=== PATIENT | male | born 2000 | race Caucasian/White ===

== ENCOUNTER 2020-09-28 20:58 | Emergency (ER) | payer MEDICAID ==
[~2020-09-28] VITALS: Ht 180.3 cm; Wt 59.0 kg
[2020-09-28 21:09] VITALS: BP 132/92
--- NOTE | 2020-09-28 21:19 | NUR ---
20 MALE BIBA C/O HIGH BLOOD SUGAR; PT STATES BILAT FEET 10/10 PAIN. PT STATING FEET IS "INFLAMED" AND GETTING "HARDER TO WALK" X4 MONTHS. MEDHX: DM NKA
[2020-09-28] MEDS ORDERED: NACL 0.9% 2,000 ML IV ONE (21:40)
--- NOTE | 2020-09-28 22:50 | NUR ---
LABS DRAWN AND HANDED TO INSPECTOR SHELLS
[2020-09-28 23:05] LABS: BASOPHILS % (AUTO) 0.7 % (0.0-2.0); EOSINOPHILS # (AUTO) 0.1 K/uL (0-0.4); EOSINOPHILS % (AUTO) 1.9 % (0.0-4.0); HEMATOCRIT 40.3 % (36-52); HEMOGLOBIN 13.7 g/dL (12.0-18.0); LYMPHOCYTES # (AUTO) 1.8 K/uL (2.0-11.5); LYMPHOCYTES % (AUTO) 32.2 % (20.5-51.1); MEAN CORPUSCULAR HEMOGLOBIN 33 pg (27-31); MEAN CORPUSCULAR HGB CONC 34 g/dL (33-37); MEAN CORPUSCULAR VOLUME 96.9 fL (80-94); MONOCYTES # (AUTO) 0.4 K/uL (0.8-1.0); MONOCYTES % (AUTO) 6.5 % (1.7-9.3); NEUTROPHILS # (AUTO) 3.3 K/uL (1.8-7.7); NEUTROPHILS % (AUTO) 58.7 % (42.2-75.2); PLATELET COUNT (AUTO) 233 K/uL (140-450); RED BLOOD CELL COUNT(AUTO) 4.16 MIL/uL (4.20-6.10); RED CELL DISTRIBUTION WIDTH 12.2 % (11.6-13.7); WHITE BLOOD COUNT (AUTO) 5.7 K/uL (4.5-11.0)
[2020-09-28 23:27] LABS: ALBUMIN 3.4 g/dL (3.4-5.0); ANION GAP 9.2 (8-16); CARBON DIOXIDE 28.4 mmol/L (21-32); CREATININE 0.8 mg/dL (0.6-1.3); POTASSIUM 4.6 mmol/L (3.5-5.1); TOTAL BILIRUBIN 0.5 mg/dL (0.0-1.0)
[2020-09-28] MEDS ORDERED: INSULIN REGULAR, HUMAN 100 UNIT/ML VIAL IVP ONE (23:35)
[2020-09-28] MEDS ORDERED: LANTUS SC (23:41)
[2020-09-28] MEDS ORDERED: INSU-1165 SQ (23:41)
[2020-09-29 01:28] VITALS: BP 130/90
--- NOTE | 2020-09-29 01:28 | NUR ---
Patient discharged with v/s stable. Written and verbal after care instructions given and explained. Patient alert, oriented and verbalized understanding of instructions. Ambulatory with steady gait. All questions addressed prior to discharge. ID band removed. Patient advised to follow up with PMD. Rx of INSULIN LISPRO AND INSULIN GLARGINE given. Patient educated on indication of medication including possible reaction and side effects. Opportunity to ask questions provided and answered.
--- NOTE | 2020-09-29 01:30 | NUR ---
PT REFUSING TO LEAVE FACILITY, CALLED SECURITY
--- NOTE | 2020-09-29 01:58 | NUR ---
PT ESCORTED OUT BY SECURITY
== END 2020-09-29 01:28 | disposition home or self-care (01) ==
LOC: MED 20:58
DX: E11.65 Type 2 diabetes mellitus with hyperglycemia (principal); S90.821A Blister (nonthermal), right foot, initial encounter; S90.822A Blister (nonthermal), left foot, initial encounter; Z91.14 Patient's other noncompliance with medication regimen; Z79.899 Other long term (current) drug therapy; X58.XXXA Exposure to other specified factors, initial encounter; Y93.89 Activity, other specified; Y92.89 Other specified places as the place of occurrence of the external cause; Y99.8 Other external cause status
CPT/HCPCS: 36415; 80053; 85025; 96361; 96374; 99283; J1815; J7030

== ENCOUNTER 2021-02-02 20:00 | Inpatient (IN) | payer MEDICAID ==
[~2021-02-02] VITALS: Ht 180.3 cm; Wt 69.9 kg
[~2021-02-02 20:00] MED LIST: INSU-1165 SQ; LANTUS SC
--- NOTE | 2021-02-02 20:00 | NUR ---
ARNOL OSITO MUÑOZ FROM [facility], PT. IS A 20 Y/O MALE THAT CAME INTO ED WITH C/O OF N/V FOR 3-4 DAYS. PT. STATES HE HAS LOWER AND UPPER ABDOMINAL PAIN THAT HE RATES AT 4/10 AT THIS TIME. PT. ADMITTED TO USING "DRUGS, EVERYTHING BUT FENTANYL" AND HAS NOT BEEN TAKING INSULIN. SKIN IS PINK/WARM/DRY; AAOX4 WITH EVEN AND STEADY GAIT; HR EVEN AND REGULAR; PT DENIES ANY FEVER, CP, SOB, OR COUGH AT THIS TIME; VSS; PATIENT POSITIONED FOR COMFORT; HOB ELEVATED; BEDRAILS UP X2; BED DOWN. ER MD MADE AWARE OF PT STATUS. PMH: DM 1 ALLERGIES: HALOPERIDOL
--- NOTE | 2021-02-02 20:03 | NUR ---
PATIENT TAKEN TO BED 7 VIA GURNEY.
--- NOTE | 2021-02-02 20:05 | NUR ---
ERMD AT BEDSIDE FOR MEDICAL EVALUATION.
[2021-02-02 20:07] VITALS: BP 141/96
--- NOTE | 2021-02-02 20:07 | NUR ---
PT. AMBULATED WITH STEADY GAIT TO BATHROOM
[2021-02-02] MEDS ORDERED: INSULIN REGULAR, HUMAN 100 UNIT/ML VIAL IV ONE (20:15)
[2021-02-02] MEDS ORDERED: NACL 0.9% 2,000 ML IV ONE (20:15)
[2021-02-02 20:33] LABS: BASOPHILS % (AUTO) 0.3 % (0.0-2.0); EOSINOPHILS % (AUTO) 0.1 % (0.0-4.0); HEMATOCRIT 50.5 % (36-52); HEMOGLOBIN 16.9 g/dL (12.0-18.0); LYMPHOCYTES # (AUTO) 1.5 K/uL (2.0-11.5); LYMPHOCYTES % (AUTO) 10.9 % (20.5-51.1); MEAN CORPUSCULAR HEMOGLOBIN 32 pg (27-31); MEAN CORPUSCULAR HGB CONC 34 g/dL (33-37); MEAN CORPUSCULAR VOLUME 94.6 fL (80-94); MONOCYTES # (AUTO) 0.6 K/uL (0.8-1.0); MONOCYTES % (AUTO) 4.4 % (1.7-9.3); NEUTROPHILS # (AUTO) 11.7 K/uL (1.8-7.7); NEUTROPHILS % (AUTO) 84.3 % (42.2-75.2); PLATELET COUNT (AUTO) 311 K/uL (140-450); RED BLOOD CELL COUNT(AUTO) 5.34 MIL/uL (4.20-6.10); RED CELL DISTRIBUTION WIDTH 12.4 % (11.6-13.7); WHITE BLOOD COUNT (AUTO) 13.9 K/uL (4.5-11.0)
[2021-02-02 20:45] LABS: ALBUMIN 4.7 g/dL (3.4-5.0); ASPARTATE AMINOTRANSFERASE 15 U/L (15-37); CHLORIDE 96 mmol/L (98-107); CREATININE 1.3 mg/dL (0.6-1.3); GFR ARICAN-AMERICAN 91 mL/min (>90); GLUCOSE 326 mg/dL (74-106); LIPASE 47 U/L (73-393); POTASSIUM 4.7 mmol/L (3.5-5.1); SODIUM SERUM 131 mmol/L (136-145); TOTAL BILIRUBIN 1.2 mg/dL (0.0-1.0); UREA NITROGEN, BLOOD 13 mg/dL (7-18)
[2021-02-02 20:48] LABS: ACETONE, SERUM SMALL (NEGATIVE); CARBON DIOXIDE 9.7 mmol/L (21-32)
[2021-02-02] MEDS ORDERED: INSULIN REGULAR, HUMAN 100 UNIT in NACL 0.9% 100 ML IV ONE ×2 (20:55)
--- NOTE | 2021-02-02 21:15 | NUR ---
INSULIN DRIP INIATED PER PROTOCOL. PT IN BED. NO NEW CONCERNS OR COMPLAINTS. ADVISED OF PENDING ADMISSION. ALL QUESTIONS ANSWERED.
--- NOTE | 2021-02-02 21:22 | NUR ---
Laquita gomez in [facility] - 02/02/21 at 2129 by MERLYN RECEIVED REPORT FROM REKHA BARKER. TRANSFER OF CARE AT THIS TIME.
[2021-02-02] MEDS ORDERED: DEXT 5% / NACL 0.45% 1,000 ML IV ONE (21:35)
[2021-02-02] MEDS ORDERED: cefTRIAXone 1,000 MG VIAL ONE (22:09)
--- NOTE | 2021-02-02 22:19 | NUR ---
PT SLEEPING - NO COMPLAINTS. NO NEW QUESTIONS OR CONCERNS.
[2021-02-02 22:20] LABS: APPEARANCE,URINE CLEAR (CLEAR); BILIRUBIN,URINE 1+ (NEGATIVE); BLOOD, URINE TRACE-I (NEGATIVE); COLOR,URINE YELLOW (YELLOW); LEUKOCYTE ESTERASE ,URINE NEGATIVE (NEGATIVE); NITRITE, URINE NEGATIVE (NEGATIVE); UGLUCOSE 2+ (NEGATIVE)
[2021-02-02 22:35] LABS: BARBITURATE, URINE NEGATIVE ng/ml (NEG <=200); BENZODIAZEPINE, URINE NEGATIVE ng/mL (NEG <=200); CANNABINOID, URINE POSITIVE ng/mL (NEG <=50); COCAINE, URINE NEGATIVE ng/mL (NEG <=300); OPIATE, URINE NEGATIVE ng/mL (NEG <=2000); PHENCYCLIDINE SCREEN,URINE NEGATIVE ng/mL (NEG <=25)
[2021-02-02 22:40] LABS: RBC,URINE 0-5 /HPF (0-5); WBC,URINE 0-5 /HPF (0-5)
--- NOTE | 2021-02-02 23:11 | NUR ---
Patient will be admitted to care of DR. BENDER. Admited to ICU. Will go to room ICU - 03. Belongings list completed. Report to LUCERO TUCKER.
[2021-02-02 23:15] VITALS: BP 136/78
[2021-02-02] MEDS: INSULIN REGULAR, HUMAN 100 UNIT in NACL 0.9% 100 ML IV SCH ×2 (23:15)
--- NOTE | 2021-02-02 23:15 | NUR ---
RECEIVED CARE AND REPORT FROM AUTO CLAIM REPRESENTATIVE. PATIENT ALERT AND ORIENTED X4 TO PERSON, PLACE, TIME AND EVENT. PATIENT ON ROOM AIR, OXYGEN SATURATION 99%, NO SIGNS OF RESPIRATORY DISTRESS OR DIFFICULTY BREATHING. HOB 30 DEGREES, AIRWAY OPEN, CLEAR AND MAINTAINABLE. PATIENT CONNECTED TO CONTINUOUS TELE MONITORING, HEART AND LUNG SOUNDS AUSCULTATED, S1, S2 HEARD AND LUNGS CLEAR, EQUAL BILATERAL. ABDOMINAL SOUNDS AUSCULTATED, NORMOACTIVE BOWEL SOUNDS IN ALL 4 QUADRANTS. PATIENT DENIES ANY COMPLAINTS OF PAIN OR DISCOMFORT WHEN ASKED. PATIENT HAS IV SITE OF LEFT AC 18G AND RIGHT AC 20G. SITES FLUSHING WELL AND DRESSINGS DRY. IV DRIPS CURRENTLY RUNNING INCLUDE INSULIN AT 0.05 UNITS/KG/HR AND D5-1/2 NS RUNNING AT 150 ML/HR PER MD ORDER, Q1 GLUCOSE CHECKS IN PLACE. SKINS INTACT WITH PREVIOUS CIGARETTE PLEITEZ ON LEFT HAND, LEFT THIGH, LEFT KNEE HEALING WOUND/SCAB FROM PATIENT STATED SKATEBOARD INJURY. PATIENT BED LOCKED AND LOWERED INTO A POSITION OF SAFETY AND COMFORT. PATIENT BEING OFFLOADED WITH USE OF PILLOWS AND ASSISTED WITH REPOSITIONING Q2. CALL LIGHT PLACED WITH PATIENT AND EDUCATED/FAMILIARIZED WITH THE ROOM ENVIRONMENT. PROMOTING RESTFUL AND HEALING ENVIRONMENT FOR THE PATIENT WITH DECREASED STIMULI. WILL CONTINUE TO CLOSELY MONITOR AND FREQUENTLY ROUND THROUGHOUT THE SHIFT.
[2021-02-02] MEDS ORDERED: DEXTROSE 50% 50 ML SYR IVP PRN (23:55)
[2021-02-02] MEDS ORDERED: INSULIN REGULAR, HUMAN 100 UNIT in NACL 0.9% 100 ML IV SCH ×2 (23:55)
[2021-02-02] MEDS: BLOOD GLUCOSE MONITORING 1 DEV DEV FS SCH (23:55)
[2021-02-03] VITALS (24 sets, daily range): BP systolic 95–138; BP diastolic 50–91
--- NOTE | 2021-02-03 00:10 | NUR ---
CONTACTED DR. BENDER REGARDING PATIENT STATUS AND FOR ANY FURTHER UPDATES IN ADDITIONAL ORDERS FOR PATIENT. DR. BENDER GIVEN FULL REPORT OF PATIENT. MD GAVE TELEPHONE VERBAL ORDERS OF [facility] BLOOD LABS Q4, CCHO DIET, Q1 ACCUCHECKS, PRN POTASSIUM 40 MEQ PO FOR POTASSIUM LESS THAN 3.5, PRN 2 GM MAG RIDER IV FOR MAGNESIUM LESS THAN 1.8. WILL CARRY OUT ORDERS.
[2021-02-03 00:29] LABS: ANION GAP 21.1 (8-16); CARBON DIOXIDE 15.7 mmol/L (21-32); CREATININE 1.1 mg/dL (0.6-1.3); POTASSIUM 3.8 mmol/L (3.5-5.1)
[2021-02-03] MEDS ORDERED: MAG SULF 2000 MG/WATER PREMIX 50 ML IV PRN (00:30)
[2021-02-03] MEDS: NACL 0.9% 1,000 ML IV SCH ×4 (00:50→20:50)
[2021-02-03] MEDS: BLOOD GLUCOSE MONITORING 1 DEV DEV FS SCH ×24 (00:55→23:55)
--- NOTE | 2021-02-03 01:25 | NUR ---
PATIENT RESTING IN A POSITION OF COMFORT, SLEEPING. NO SIGNS OF DISTRESS OBSERVED WHILE AT BEDSIDE. PATIENT CONTINUES TO TOLERATE CURRENT THERAPIES WELL. WILL CONTINUE TO CLOSELY MONITOR, REASSESS OFTEN AND FREQUENTLY ROUND.
--- NOTE | 2021-02-03 03:16 | NUR ---
PATIENT ASLEEP, HOB 30 DEGREES. NO SIGNS OF DISTRESS OBSERVED WHILE AT BEDSIDE. PATIENT CONTINUES TO TOLERATE CURRENT THERAPIES WELL. PATIENT OXYGEN SATURATION 98%, NSR ON THE MONITOR HR 76, RR 12. WILL CONTINUE TO CLOSELY MONITOR, REASSESS OFTEN AND FREQUENTLY ROUND.
[2021-02-03] MEDS ORDERED: BLOOD GLUCOSE MONITORING 1 DEV DEV FS SCH (04:05)
[2021-02-03] MEDS ORDERED: DEXTROSE 50% 50 ML SYR IVP PRN (04:05)
[2021-02-03 04:21] LABS: ANION GAP 23.4 (8-16); CARBON DIOXIDE 17.1 mmol/L (21-32); POTASSIUM 3.5 mmol/L (3.5-5.1)
[2021-02-03 04:39] LABS: MAGNESIUM 1.6 mg/dL (1.8-2.4); PHOSPHORUS 3.4 mg/dL (2.5-4.9)
--- NOTE | 2021-02-03 05:22 | NUR ---
LOW BLOOD SUGAR OF 62 PER INSULIN DRIP PROTOCOL, INSULIN DRIP HELD, D50 GIVEN ORDERED BY MD/PER PROTOCOL.
--- NOTE | 2021-02-03 05:23 | NUR ---
PATIENT IN NO OBVIOUS SIGNS OF DISTRESS OR DISCOMFORT. STATED FEELING FINE WHEN ASKED AND CURRENTLY ASYMPTOMATIC. WILL CONTINUE TO CLOSELY MONITOR AND FREQUENTLY ROUND.
[2021-02-03] MEDS: DEXT 5% / NACL 0.45% 1,000 ML IV SCH ×3 (05:38→18:42)
--- NOTE | 2021-02-03 05:45 | NUR ---
BLOOD SUGAR RECHECKED, GLUCOSE 184. DR. BENDER CONTACTED DUE TO CRITICAL GLUCOSE, AWAITING FURTHER ORDERS FROM .
--- NOTE | 2021-02-03 05:48 | NUR ---
PRN MAG RIDER IV GIVEN ORDERED BY MD FOR LOW MAG LAB LEVEL OF 1.6. WILL CONTINUE TO CLOSELY MONITOR AND FREQUENTLY ROUND.
--- NOTE | 2021-02-03 05:55 | NUR ---
CALLED/PAGED FOR DR. BENDER, AWAITING FOR A CALLBACK FROM
--- NOTE | 2021-02-03 06:02 | NUR ---
PATIENT CONTINUES TO REST, NO OBVIOUS SIGNS OF DISTRESS OBSERVED WHILE AT BEDSIDE. PATIENT STATES THAT HE CONTINUES TO FEEL OK AND DENIES PAIN, DENIES DISCOMFORT. WILL CONTINUE TO CLOSELY MONITOR, REASSESS OFTEN AND FREQUENTLY ROUND.
--- NOTE | 2021-02-03 06:25 | NUR ---
CALLED/PAGED FOR DR. BENDER AGAIN, AWAITING FOR A CALLBACK FROM MD TO NOTIFY OF PATIENT STATUS.
--- NOTE | 2021-02-03 07:19 | NUR ---
REPORT AND CONTINUITY OF CARE ENDORSED TO DAYSHIFT RN
--- NOTE | 2021-02-03 07:24 | NUR ---
RECEIVED BEDSIDE REPORT FROM NIGHTSHIFT NURSE. PATIENT ABLE TO MAKE NEEDS KNOWN. PATIENT ON ROOM AIR, OXYGEN SATURATION 99%, NO SIGNS OF RESPIRATORY DISTRESS OR SOB. PATIENT CONNECTED TO CONTINUOUS TELE MONITORING, PATIENT DENIES PAIN. PATIENT HAS IV SITE OF LEFT AC 18G AND RIGHT AC 20G. SITES FLUSHING WELL AND DRESSINGS DRY. IV DRIPS CURRENTLY RUNNING INCLUDE MAG BAO WITH INSULIN AT 0.05 UNITS/KG/HR AND D5-1/2 NS RUNNING AT 150 ML/HR PER MD ORDER, Q1 GLUCOSE CHECKS IN PLACE. SKINS INTACT WITH PREVIOUS CIGARETTE PLEITEZ ON LEFT HAND, LEFT THIGH, LEFT KNEE HEALING WOUND/SCAB FROM PATIENT STATED SKATEBOARD INJURY. PATIENT BED LOCKED AND LOWERED INTO A POSITION OF SAFETY AND COMFORT. PATIENT BEING OFFLOADED WITH USE OF PILLOWS AND ASSISTED WITH REPOSITIONING Q2. SAFETY MEASURES IN PLACE. WILL CONTINUE TO MONITOR
--- NOTE | 2021-02-03 08:05 | NUR ---
PT BLOOD SUGAR IS 166. STARTED INSULIN DRIP PRESCRIBED PER MD ORDER. SAFETY MEASURES IN PLACE. WILL CONTINUE TO MONITOR
--- NOTE | 2021-02-03 08:21 | NUR ---
REPORTED VBG RESULTS TO DR BENDER, NO NEW ORDERS.
[2021-02-03 08:23] LABS: ANION GAP 19.7 (8-16); CARBON DIOXIDE 17.2 mmol/L (21-32); POTASSIUM 3.9 mmol/L (3.5-5.1)
[2021-02-03 08:26] LABS: MAGNESIUM 2.4 mg/dL (1.8-2.4); PHOSPHORUS 3.1 mg/dL (2.5-4.9)
--- NOTE | 2021-02-03 08:37 | NUR ---
PATIENT HAS BEEN SCREENED AND CATEGORIZED HIGH NUTRITION RISK. PATIENT WILL BE SEEN WITHIN 1-2 DAYS OF ADMISSION. 02/03/21-02/04/21 FNS REFERRAL FOR UNCONTROLLED DIABETES [address]
[2021-02-03] MEDS ORDERED: MORPHINE SULFATE 2 MG/ML SYR IVP PRN (09:00)
[2021-02-03] MEDS ORDERED: DOCUSATE SODIUM 100 MG GELCAP PO PRN (09:00)
[2021-02-03] MEDS ORDERED: LORazepam 2 MG/ML VIAL IM/IVP PRN (09:00)
[2021-02-03] MEDS ORDERED: HYDROcodone/APAP 5/325 MG 1 TAB TAB PO PRN (09:00)
[2021-02-03] MEDS ORDERED: ACETAMINOPHEN 325 MG TAB PO PRN (09:00)
[2021-02-03] MEDS ORDERED: ONDANSETRON 4 MG/2 ML VIAL IM/IVP PRN (09:00)
[2021-02-03] MEDS ORDERED: ZOLPIDEM 5 MG TAB PO PRN (09:00)
--- NOTE | 2021-02-03 09:55 | NUR ---
BLOOD SUGAR IS 222. ADJUSTMENTS MADE PER PROTOCOL. SAFETY MEASURES IN PLACE. WILL CONTINUE TO MONITOR
--- NOTE | 2021-02-03 10:41 | NUR ---
PATIENT ASLEEP IN BED. RESPONSIVE TO VERBAL AND TACTILE STIMULI. NO SIGNS OF DISTRESS. SAFETY MEASURES IN PLACE. WILL CONTINUE TO MONITOR
--- NOTE | 2021-02-03 12:00 | NUR ---
DR. BENDER AT BEDSIDE ASSESSING PATIENT. WILL CONTINUE TO MONITOR
[2021-02-03 12:46] LABS: BASOPHILS % (AUTO) 0.6 % (0.0-2.0); EOSINOPHILS % (AUTO) 0.7 % (0.0-4.0); HEMATOCRIT 46.7 % (36-52); HEMOGLOBIN 16.1 g/dL (12.0-18.0); LYMPHOCYTES # (AUTO) 1.7 K/uL (2.0-11.5); LYMPHOCYTES % (AUTO) 25.2 % (20.5-51.1); MEAN CORPUSCULAR HEMOGLOBIN 32 pg (27-31); MEAN CORPUSCULAR HGB CONC 35 g/dL (33-37); MEAN CORPUSCULAR VOLUME 93.7 fL (80-94); MONOCYTES # (AUTO) 0.6 K/uL (0.8-1.0); MONOCYTES % (AUTO) 9.2 % (1.7-9.3); NEUTROPHILS # (AUTO) 4.3 K/uL (1.8-7.7); NEUTROPHILS % (AUTO) 64.3 % (42.2-75.2); PLATELET COUNT (AUTO) 254 K/uL (140-450); RED BLOOD CELL COUNT(AUTO) 4.99 MIL/uL (4.20-6.10); RED CELL DISTRIBUTION WIDTH 12.2 % (11.6-13.7); WHITE BLOOD COUNT (AUTO) 6.7 K/uL (4.5-11.0)
[2021-02-03 13:00] LABS: ANION GAP 21.4 (8-16); CARBON DIOXIDE 17.2 mmol/L (21-32); CREATININE 1.1 mg/dL (0.6-1.3); POTASSIUM 3.6 mmol/L (3.5-5.1)
--- NOTE | 2021-02-03 13:15 | NUR ---
PT RESTING IN BED. ABLE TO MAKE NEEDS KNOWN. RESPIRATIONS EVEN AND UNLABORED WITH NO SOB OR RESPIRATORY DISTRESS. SAFETY MEASURES IN PLACE. WILL CONTINUE TO MONITOR
[2021-02-03 13:22] LABS: PROTHROMBIN TIME 10.4 secs (10.8-13.4)
[2021-02-03 13:39] LABS: THYROID STIMULATING HORMONE 0.55 uIU/mL (0.34-3.74)
--- NOTE | 2021-02-03 14:03 | NUR ---
DC PLANNIN YRS OLD HOMELESS MALE PATIENT WAS ADMITTED FROM ER WITH A DX OF DKA BLOOD GLUCOSE 326 ANION GAP WAS 30 ON ADMISSION. PATIENT HAS A HX OF DM ,NON COMPLIANT. URINE AND BLOOD CULTURE PENDING. ON INSULIN DRIP, IV ABX ROCEPHIN AND IVF. CONSULTED WITH CRITICAL PULMO DR SPENCE. CLERK TO EVALUATE FOR HOMELESSNESS. DC PLAN TO GO HOME WHEN STABLE. CM TO FOLLOW.
[2021-02-03 14:05] LABS: PHOSPHORUS 1.8 mg/dL (2.5-4.9)
--- NOTE | 2021-02-03 14:55 | NUR ---
PT BLOOD SUGAR IS 171. PT ON INSULIN DRIP. ADJUSTED PER PROTOCOL. SAFETY MEASURES IN PLACE. WILL CONTINUE TO MONITOR
--- NOTE | 2021-02-03 15:09 | NUR ---
DC PLANNING: SPOKE WITH PATIENT AT BEDSIDE REGARDING DC PLANNING. PATIENT WITH FLAT AFFECT AND VOICE, RELUCTANT TO ANSWER QUESTIONS. INITIALLY STATED HE LIVES IN A MOTOR HOME, LATER ADMITTED HE'S HOMELESS AND SLEEPING ON THE STREETS, HAS NO PARTICULAR PLACE, PER HIS STATEMENT HE SLEEPS WHEREVER HE IS WHEN HE "CAN'T GO ANYMORE". 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 STATES HE HAS A CELL PHONE THAT HAS NO SERVICE. HAS A GLUCOMETER BUT STATES HE NEVER CHECKS HIS BLOOD SUGAR. 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 STATES HE KEEPS HIS INSULIN AT HIS MOTHER AND GRANDFATHERS HOUSE(S), BUT RAN OUT. NO LONGER HAS A PCP, STATES HE HAS NO MONEY TO SEE A DOCTOR AND CAN'T RETURN TO HIS FORMER PCP. DECLINED OFFER FOR PLACEMENT AT [facility] OR OTHER LODGING, STATED THAT "SOME PROBLEMS JUST CAN'T BE FIXED." H/O OF DIABETES SINCE AGE 12. CM WILL CONTINUE TO FOLLOW FOR NEEDS.
--- NOTE | 2021-02-03 15:35 | NUR ---
02/03/21 RD INITIAL ASSESSMENT COMPLETED PLEASE REFER TO NUTRITION ASSESSMENT UNDER CARE ACTIVITY FOR ESTIMATED NUTRITIONAL NEEDS. 1. CONTINUE [facility] DIET TOLERATED 2. RD OFFERED NUTRITION EDUCATION ON CARBOHYDRATE COUNTING. PT DECLINED. 3. RD TO FOLLOW-UP 3-5 DAYS, MODERATE RISK [address]
[2021-02-03 16:14] LABS: ANION GAP 12.9 (8-16); CARBON DIOXIDE 22.3 mmol/L (21-32); CREATININE 0.9 mg/dL (0.6-1.3); POTASSIUM 3.2 mmol/L (3.5-5.1)
[2021-02-03 16:19] LABS: PHOSPHORUS 2.1 mg/dL (2.5-4.9)
--- NOTE | 2021-02-03 16:55 | NUR ---
PT BLOOD SUGAR IS 131. FOLLOWING INSULIN PROTOCOL PER MD ORDER. SAFETY MEASURES IN PLACE. WILL CONTINUE TO MONITOR
[2021-02-03] MEDS: POTASSIUM CHLORIDE 10 MEQ TABER PO PRN (17:03)
--- NOTE | 2021-02-03 18:20 | NUR ---
PT EATING IN BED. ABLE TO MAKE NEEDS KNOWN. NO SIGNS OF DISTRESS AT THIS TIME. WILL CONTINUE TO MONITOR
--- NOTE | 2021-02-03 19:18 | NUR ---
ENDORSED AT BEDSIDE TO NIGHTSHIFT NURSE FOR CONTINUITY OF CARE
--- NOTE | 2021-02-03 19:20 | NUR ---
RECEIVED CARE AND REPORT FROM DAYSHIFT RN. PATIENT ALERT AND ORIENTED X4 TO PERSON, PLACE, TIME AND EVENT. PATIENT ON ROOM AIR, OXYGEN SATURATION 100%, NO SIGNS OF RESPIRATORY DISTRESS OR DIFFICULTY BREATHING, RESTING COMFORTABLY. HOB 25 DEGREES, AIRWAY OPEN, CLEAR AND MAINTAINABLE. PATIENT CONNECTED TO CONTINUOUS TELE MONITORING AT BEDSIDE HR 72 NSR, HEART AND LUNG SOUNDS AUSCULTATED, S1, S2 HEARD AND LUNGS CLEAR, EQUAL BILATERAL IN ALL LUNG YEPEZ, RR 14. ABDOMINAL SOUNDS AUSCULTATED, NORMOACTIVE BOWEL SOUNDS IN ALL 4 QUADRANTS. PATIENT DENIES ANY COMPLAINTS OF PAIN OR DISCOMFORT WHEN ASKED. PATIENT HAS IV SITE OF LEFT AC 18G AND RIGHT AC 20G. IV SITES FLUSHING WELL AND DRESSINGS DRY, INTACT. IV DRIPS CURRENTLY RUNNING INCLUDE INSULIN AT 0.05 UNITS/KG/HR AND D5-1/2 NS RUNNING AT 150 ML/HR PER MD ORDER, Q1 GLUCOSE CHECKS REMAIN IN PLACE. SKINS INTACT WITH PREVIOUS CIGARETTE PLEITEZ ON RIGHT HAND, LEFT THIGH, AND LEFT KNEE HEALING WOUND/SCAB FROM PATIENT STATED OLD SKATEBOARD INJURY. PATIENT BED LOCKED AND LOWERED INTO A POSITION OF SAFETY AND COMFORT. PATIENT BEING OFFLOADED WITH USE OF PILLOWS AND ASSISTED WITH REPOSITIONING Q2. CALL LIGHT PLACED WITH PATIENT AND EDUCATED/FAMILIARIZED WITH THE ROOM ENVIRONMENT. PROMOTING RESTFUL AND HEALING ENVIRONMENT FOR THE PATIENT WITH DECREASED STIMULI. WILL CONTINUE TO CLOSELY MONITOR AND FREQUENTLY ROUND THROUGHOUT THE SHIFT.
[2021-02-03 20:49] LABS: CARBON DIOXIDE 19.1 mmol/L (21-32); POTASSIUM 4.1 mmol/L (3.5-5.1)
[2021-02-03 20:56] LABS: MAGNESIUM 1.8 mg/dL (1.8-2.4); PHOSPHORUS 2.3 mg/dL (2.5-4.9)
--- NOTE | 2021-02-03 21:06 | NUR ---
SCHEDULED MEDICATIONS GIVEN ORDERED BY MD. PATIENT TOLERATING CURRENT THERAPIES IN PLACE, NO OBVIOUS SIGNS OF DISTRESS OR DISCOMFORT OBSERVED WHILE AT BEDSIDE. PATIENT RESTING IN A POSITION OF COMFORT. WILL CONTINUE TO CLOSELY MONITOR, REASSESS OFTEN AND FREQUENTLY ROUND.
--- NOTE | 2021-02-03 23:03 | NUR ---
PATIENT CONTINUES TO REST IN A POSITION OF COMFORT, DENIES ANY PAIN OR DISCOMFORT WHEN ASKED. PATIENT STATES FEELING FINE, TRYING TO REST/SLEEP. PATIENT CONTINUES TO TOLERATE CURRENT THERAPIES IN PLACE, NO OBVIOUS SIGNS OF DISTRESS OBSERVED WHILE AT BEDSIDE. WILL CONTINUE TO REASSESS OFTEN, CLOSELY MONITOR AND FREQUENTLY ROUND.
[2021-02-03] MEDS: INSULIN REGULAR, HUMAN 100 UNIT in NACL 0.9% 100 ML IV SCH ×2 (23:31)
[2021-02-04] VITALS (14 sets, daily range): BP systolic 92–123; BP diastolic 45–81
--- NOTE | 2021-02-04 00:25 | NUR ---
PATIENT BLOOD GLUCOSE TRENDING DOWN TO 77, STATES FEELING FINE AND IS HUNGRY, GIVEN SANDWICH TO EAT. TOLERATING FOOD WELL, DENIES ANY DISTRESS OR DISCOMFORT. ATE ALL OF THE PROVIDED FOOD. WILL CONTINUE TO REASSESS OFTEN, CLOSELY MONITOR AND FREQUENTLY ROUND.
[2021-02-04 00:32] LABS: ANION GAP 10.8 (8-16); CARBON DIOXIDE 24.7 mmol/L (21-32); CREATININE 0.9 mg/dL (0.6-1.3); POTASSIUM 3.5 mmol/L (3.5-5.1)
[2021-02-04] MEDS: BLOOD GLUCOSE MONITORING 1 DEV DEV FS SCH ×10 (00:55→17:27)
--- NOTE | 2021-02-04 01:10 | NUR ---
GLUCOSE RECHECKED PER PROTOCOL, GLUCOSE 137, PATIENT STATES THAT HES STILL FEELS FINE WHEN ASKED. PATIENT ATTEMPTING TO SLEEP/REST. ASSISTED INTO A POSITION OF COMFORT. NO SIGNS OF DISTRESS OBSERVED WHILE AT BEDSIDE. WILL CONTINUE TO REASSESS OFTEN, CLOSELY MONITOR AND FREQUENTLY ROUND.
[2021-02-04] MEDS: DEXT 5% / NACL 0.45% 1,000 ML IV SCH ×2 (01:39→08:00)
--- NOTE | 2021-02-04 02:07 | NUR ---
GLUCOSE 222, SWITCHED FLUIDS TO NS 0.9% PER PROTOCOL. PATIENT CONTINUES TO REST COMFORTABLY. WILL CONTINUE TO REASSESS OFTEN, CLOSELY MONITOR AND FREQUENTLY ROUND.
[2021-02-04] MEDS: NACL 0.9% 1,000 ML IV SCH ×2 (02:15→10:20)
--- NOTE | 2021-02-04 03:33 | NUR ---
PATIENT VOIDED 1 TIME, 1100 ML URINE OUTPUT.
--- NOTE | 2021-02-04 05:06 | NUR ---
BLOOD GLUCOSE 177, SWITCHED FLUIDS BACK TO D5-1/2 NS PER PROTOCOL, TOLERATING THERAPIES WELL. WILL CONTINUE TO REASSESS OFTEN, CLOSELY MONITOR AND FREQUENTLY ROUND.
[2021-02-04 05:59] LABS: BASOPHILS % (AUTO) 0.6 % (0.0-2.0); EOSINOPHILS # (AUTO) 0.1 K/uL (0-0.4); EOSINOPHILS % (AUTO) 1.5 % (0.0-4.0); HEMATOCRIT 42.1 % (36-52); HEMOGLOBIN 14.6 g/dL (12.0-18.0); MEAN CORPUSCULAR HEMOGLOBIN 32 pg (27-31); MEAN CORPUSCULAR HGB CONC 35 g/dL (33-37); MEAN CORPUSCULAR VOLUME 93.2 fL (80-94); MONOCYTES # (AUTO) 0.4 K/uL (0.8-1.0); MONOCYTES % (AUTO) 7.1 % (1.7-9.3); NEUTROPHILS # (AUTO) 2.8 K/uL (1.8-7.7); NEUTROPHILS % (AUTO) 52.8 % (42.2-75.2); PLATELET COUNT (AUTO) 213 K/uL (140-450); RED BLOOD CELL COUNT(AUTO) 4.52 MIL/uL (4.20-6.10); WHITE BLOOD COUNT (AUTO) 5.3 K/uL (4.5-11.0)
[2021-02-04 06:41] LABS: CHOL/HDL RATIO 4.7 (1-4.5)
[2021-02-04 06:43] LABS: MAGNESIUM 1.8 mg/dL (1.8-2.4); PHOSPHORUS 2.9 mg/dL (2.5-4.9)
[2021-02-04 06:44] LABS: ANION GAP 12.5 (8-16); CARBON DIOXIDE 20.7 mmol/L (21-32); CREATININE 0.9 mg/dL (0.6-1.3); POTASSIUM 3.2 mmol/L (3.5-5.1)
--- NOTE | 2021-02-04 07:21 | NUR ---
REPORT AND CARE ENDORSED TO DAYSHIFT RN FOR CONTINUITY OF CARE.
--- NOTE | 2021-02-04 07:25 | NUR ---
RECEIVED HANDOFF FROM HAND PRINTED CIRCUIT BOARD ASSEMBLER RN. PT IS ALERT AND ORIENTED X4. PT IS ON ROOM AIR AT THIS TIME. PT IS SATURATING WELL, RESPIRATIONS EVEN AND UNLABORED. PT'S IS CURRENTLY SINUS RHYTHM ON THE MONITOR. FOR ACCESS, PT HAS L AC 18 G AND R AC 20 G. INSULIN DRIP IS RUNNING AT 0.05 UN/KG/HR AND D5 1/2 NS AT 150 ML/HR. PT IS ON CCHO 60 G FOR DIET AND IS TOLERATING WELL WITHOUT NAUSEA OR VOMITING. HOB IS 30 DEG WITH BED IN LOW, LOCKED POSITION, SAFETY MEASURES IN PLACE.
--- NOTE | 2021-02-04 08:00 | NUR ---
VBG HELD FOR CORRELATION TIME WITH LAB DRAW
[2021-02-04 08:08] LABS: T4 (THYROXINE) 7.2 ug/dL (4.5-12.0)
[2021-02-04] MEDS ORDERED: BLOOD GLUCOSE MONITORING 1 DEV DEV FS SCH (09:00)
[2021-02-04] MEDS: POTASSIUM CHLORIDE 10 MEQ TABER PO PRN (09:06)
--- NOTE | 2021-02-04 09:13 | NUR ---
VBG DRAWN BY LAB PRIOR TO RECEIVING CANCELLATION NOTICES IN CARDIOPULMONARY DEPT
[2021-02-04] MEDS ORDERED: SODIUM BICARBONATE 650 MG TAB PO SCH (09:25)
[2021-02-04] MEDS ORDERED: INSULIN LANTUS 100 UNITS/ML 10 ML VIAL SUBQ SCH (09:25)
[2021-02-04] MEDS ORDERED: DEXTROSE 50% 50 ML SYR IVP PRN (09:25)
--- NOTE | 2021-02-04 09:36 | NUR ---
MEDICATIONS ADMINISTERED PER ORDER, PT TOLERATED WELL. BG 127, OKAY TO GIVE 15 UNITS OF LANTUS INSULIN. TEMPERATURE 97.8 TEMPORALLY. PT ABLE TO SIT UP IN BED AND FINISHED BREAKFAST.
[2021-02-04 10:06] LABS: ANION GAP 12.7 (8-16); CARBON DIOXIDE 24.5 mmol/L (21-32); CREATININE 0.9 mg/dL (0.6-1.3); POTASSIUM 3.2 mmol/L (3.5-5.1)
[2021-02-04] MEDS: INSULIN LISPRO SLIDING SCALE 100 UNITS/ML VIAL SUBQ PRN ×2 (11:59→17:30)
--- NOTE | 2021-02-04 12:02 | NUR ---
BS 239, 4 UNITS OF INSULIN ADMINISTERED PER SLIDING SCALE. PT PROVIDED WITH LUNCH, SITTING UP IN BED ABLE TO FEED SELF. TEMPERATURE 98.2 TEMPORALLY.
--- NOTE | 2021-02-04 14:00 | NUR ---
PT APPEARS TO BE RESTING IN BED, HOB AT 30 DEG. CALL LIGHT WITHIN REACH. SAFETY MEASURES IN PLACE
--- NOTE | 2021-02-04 17:33 | NUR ---
BS 212, 4 UNITS OF HUMALOG INSULIN ADMINISTERED PER SLIDING SCALE. PT TOLERATED WELL. AWAITING ARRIVAL OF PT'S DINNER.
--- NOTE | 2021-02-04 17:58 | NUR ---
PT IS GOING TO BE TRANSFERRED TO TELEMETRY UNIT. CALLED AND GAVE REPORT TO SAADIA. PT WILL BE GOING TO ROOM 104 B
--- NOTE | 2021-02-04 18:33 | NUR ---
PT EXPRESSED WISH TO LEAVE AGAINST MEDICAL ADVICE. EXPLAINED RISKS OF LEAVING AND RECOMMENDED PT STAY AND CONTINUE TREATMENT AND MONITORING UNTIL DISCHARGED BY PHYSICIAN. NOTIFIED DR. CHISHOLM WELL. PT IS ALERT AND ORIENTED AND VERBALIZED UNDERSTANDING OF RISKS BUT STILL WISHES TO LEAVE. PROVIDED PT WITH APPROPRIATE PAPERWORK AND HAD HIM SIGN APPROPRIATE.
--- NOTE | 2021-02-04 18:43 | NUR ---
PROVIDED PT WITH FOOD, WIPES, AND BAG FOR BELONGINGS. REMOVED IVS, BLEEDING CONTROLLED
--- NOTE | 2021-02-04 19:00 | NUR ---
PT UP OUT OF BED WITHOUT ASSIST, PT AMBULATES WITH STEADY GAIT, BUS PASS/FOOD AND WANTER PROVIDED, ESCORTED OUT TO HOSPITAL LOBBY, PATIENT LEFT WITH ALL OF HIS BELONGINGS.
== END 2021-02-04 18:55 | disposition left against medical advice (07) | DRG 812 ==
LOC: MED 20:00 → MMU 21:44 → MIC 22:33
DX: T43.621A Poisoning by amphetamines, accidental (unintentional), initial encounter (principal); J96.01 Acute respiratory failure with hypoxia; G92 Toxic encephalopathy; E10.10 Type 1 diabetes mellitus with ketoacidosis without coma; F12.10 Cannabis abuse, uncomplicated; F15.10 Other stimulant abuse, uncomplicated; Z20.822 Contact with and (suspected) exposure to COVID-19; Z53.29 Procedure and treatment not carried out because of patient's decision for other reasons; Z91.14 Patient's other noncompliance with medication regimen; E87.1 Hypo-osmolality and hyponatremia; E83.42 Hypomagnesemia; E83.51 Hypocalcemia; F15.120 Other stimulant abuse with intoxication, uncomplicated; F12.120 Cannabis abuse with intoxication, uncomplicated; Z59.0 Homelessness; Z79.4 Long term (current) use of insulin; Y92.89 Other specified places as the place of occurrence of the external cause
CPT/HCPCS: 36415; 80048; 80053; 80305; 81001; 82009; 82140; 82150; 82803; 83036; 83605; 83690; 83735; 83880; 84100; 84436; 84443; 85025; 85610; 85730; 87040; 87081; 87086; 96365; 96366; 96368; 96375; 99291; J0696; J1644; J1815; J3475; J7060